=== PATIENT | male | born 1960 | race Caucasian/White ===

== ENCOUNTER 2020-02-29 13:18 | Emergency (ER) | payer OTHER, SELFPAY ==
--- NOTE | ~2020-02-29 | XR_ITS ---
EXAMINATION: XR tibia fibula LT 2V DATE: 02/29/2020 14:05 INDICATION: Left lower leg wound. TECHNIQUE: 2 views of left tibia and fibula on 3 radiographs were obtained. COMPARISON: None. FINDINGS: Bone alignment is normal. No fracture. 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 IMPRESSION: 1. No fracture or radiopaque foreign body. Reviewed, dictated and finalized at location B.
[2020-02-29 13:25] VITALS: BP 180/99; PULSE 84; RESP 20; TEMP 36.4; O2SAT 97
--- NOTE | 2020-02-29 13:35 | ED.WOUNDLAC ---
HPI - Wound/Laceration General Chief Complaint: Extremity Injury, Lower Stated Complaint: whole in left leg front having sharp pain Time Seen by Provider: 02/29/20 13:21 Source: patient Mode of arrival: ambulatory Limitations: no limitations History of Present Illness HPI narrative: 59-year-old man with a history of chronic left lower extremity wound comes in today complaining of a hole in his left leg that is becoming increasingly painful. Pain is mostly on the medial aspect of his left lower leg. Patient states that he has to see a neurologist later the month for evaluation for neuropathy. He denies any fever, nausea, vomiting , night sweats and denies any recent injury. 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 Onset (ago): week(s) Extremity Location: Left: lower leg Context: other ( chronic) Related Data Allergies Allergy/AdvReac Type Severity Reaction Status Date / Time No Known Allergies Allergy Verified 04/17/19 09:49 Review of Systems Constitutional: Constitutional: Denies chills, Denies fever(s) and Denies weakness Respiratory: Respiratory: Denies cough and Denies dyspnea Gastrointestinal: Gastrointestinal: Denies abdominal pain, Denies nausea and Denies vomiting Neurologic: Denies vertigo, Denies dizziness and Denies syncope Hematologic/Lymphatic: Hematologic/Lymphatic: Denies easy bleeding and Denies easy bruising Allergic/Immunologic: Allergic/Immunologic: Denies lip swelling and Denies tongue swelling PMFSH Past Medical History Medical History Chronic wound of extremity Social History Social History Smoking status: Current every day smoker Substance use: never Living arrangements: with family Exam Const: General: healthy appearing and alert Orientation/consciousness: patient oriented x3 Limitations: no limitations Other: mild acute distress. Eyes: Conjunctivae: conjunctivae normal Pupils: Equal, round and reactive pupils present EOM: EOMs intact bilaterally Resp: Effort & Inspection: normal respiratory effort and not labored Auscultation: clear to auscultation bilaterally, no rales, no rhonchi and no wheezes Cardio: Rate: regular rate Rhythm: regular rhythm Heart sounds: no murmurs Skin: General skin exam: normal color, no jaundice and no pallor Rashes: no rashes Other: And her left lower leg shows some edema and nonpitting edema. There is a 2 cm diameter wound with fibrinous and purulent material at the base. There is a halo of brownish red and edematous tenderness approximately 15 cm in diameter. Neuro: General: No patient oriented x3, No moves all extremities and No no focal motor deficits Cranial nerves: No Nystagmus not present Speech: No normal speech Gait exam (Neuro): gait abnormal Extrem: General: normal to inspection and no clubbing, cyanosis or edema Psych: Appearance: grossly normal and well kempt Mental Status: mental status grossly normal Affect: normal affect Attitude: cooperative Thought content: Yes Normal thought content present Course Vital Signs Vital signs: Vital Signs Temperature 36.4 C 02/29/20 13:25 Pulse Rate 84 02/29/20 13:25 Respiratory Rate 20 02/29/20 13:25 Blood Pressure 180/99 H 02/29/20 13:25 Pulse Oximetry 97 02/29/20 13:25 Temperature 36.4 C 02/29/20 13:25 Pulse Rate 73 02/29/20 14:00 Respiratory Rate 18 02/29/20 14:00 Blood Pressure 168/96 H 02/29/20 14:00 Pulse Oximetry 97 02/29/20 14:00 MDM - Wound/Laceration Lab Data Result diagrams: 02/29/20 13:49 02/29/20 13:49 Labs: Lab Results 02/29/20 02/29/20 Range/Units 13:49 13:49 WBC 8.6 (4.8-10.8) K/mm3 RBC 4.52 L (4.70-6.10) M/mm3 Hgb 13.4 L (14.0-18.0) g/dL Hct 40.0 (40.0-54.0) % MCV 88.5 (78.0-102.0) fL MCH 29.6 (27.0-31.0) pg MCHC 33.5 (32.0-3
[2020-02-29 13:45] VITALS: BP 158/90; PULSE 78; RESP 18; O2SAT 100
[2020-02-29 13:57] LABS: Basophils Absolute Auto 0.03 K/mm3 (0.00-0.10); Basophils Percent Auto 0.4 % (0.0-1.0); Eosinophils Absolute Auto 0.24 K/mm3 (0.02-0.50); Eosinophils Percent Auto 2.8 % (1.0-6.0); Hemoglobin 13.4 g/dL (14.0-18.0); Immature Granulocyte Absolute 0.02 K/mm3 (0.00-0.00); Immature Granulocyte Percent A 0.2 % (0.0-0.0); Lymphocytes Absolute Auto 1.44 K/mm3 (1.10-4.50); Lymphocytes Percent Auto 16.8 % (18.0-42.0); Mean Corpuscular HGB Conc 33.5 g/dL (32.0-36.0); Mean Corpuscular Hemoglobin 29.6 pg (27.0-31.0); Mean Corpuscular Volume 88.5 fL (78.0-102.0); Mean Platelet Volume 9.4 fl (8.7-11.0); Monocytes Absolute Auto 0.56 K/mm3 (0.10-0.90); Monocytes Percent Auto 6.5 % (2.0-11.0); Neutrophils Absolute Auto 6.3 K/mm3 (1.7-7.2); Neutrophils Percent Auto 73.3 % (50.0-70.0); Platelet Count Result 284 K/mm3 (150-420); Red Blood Count 4.52 M/mm3 (4.70-6.10); Red Cell Distribution Width 13.7 % (11.6-14.4); White Blood Count 8.6 K/mm3 (4.8-10.8)
[2020-02-29 14:00] VITALS: BP 168/96; PULSE 73; RESP 18; O2SAT 97
[2020-02-29 14:10] LABS: Alanine Aminotransferase 27 U/L (16-63); Albumin Level 3.3 g/dL (3.4-5.0); Alkaline Phosphatase 97 U/L (46-116); Anion Gap 9 mmol/L (8-16); Aspartate Amino Transferase 17 U/L (15-37); Bilirubin,Total 0.8 mg/dL (0.00-1.00); Blood Urea Nitrogen 12 mg/dL (7-18); CRP 2.6 mg/dL (0.0-0.9); Carbon Dioxide 25 mmol/L (21-32); Chloride 106 mmol/L (98-108); Estimated CRCL calculation 73 ml/min; Estimated Glomerular Filt Rate > 60; Glucose 85 mg/dL (70-99); Osmolality Calculated 288 mOsm/kg (285-295); Potassium 3.8 mmol/L (3.5-5.1); Sodium 140 mmol/L (136-145); Total Protein 7.2 g/dL (6.4-8.2)
[2020-02-29 14:27] VITALS: PULSE 73; RESP 16; O2SAT 99
--- NOTE | 2020-02-29 14:36 | PC.NURSE ---
wet to dry dressing placed on left lower leg per erp orders
[2020-02-29 14:58] LABS: Erythrocyte Sedimentation Rate 40 mm/hr (0-20)
== END 2020-02-29 14:36 | disposition home or self-care (01) ==
PROVIDERS: Emergency Provider Emergency Medicine; PCP Family Medicine
DX: S81.802A Unspecified open wound, left lower leg, initial encounter (principal)
CPT/HCPCS: 36415; 73590; 80053; 85025; 85652; 86140; 99283

== ENCOUNTER 2021-03-25 18:58 | Emergency (ER) | payer OTHER, SELFPAY ==
[2021-03-25 20:02] VITALS: BP 177/82; PULSE 82; RESP 20; TEMP 36.7; O2SAT 97
--- NOTE | 2021-03-25 20:05 | ED.ABDPAIN ---
HPI - Abdominal Pain General Chief Complaint: Unspecified Stated Complaint: Lump between groin and stomach Time Seen by Provider: 03/25/21 20:05 Source: patient Mode of arrival: ambulatory Limitations: no limitations History of Present Illness HPI narrative: 60-year-old woman comes in today complaining of pain in his right lower quadrant in his right groin which has been present for the last 4 months. Patient states the pain is getting worse recently. He states that sometimes part of his groin sticks out, particular after he is working. He has had no vomiting, diarrhea, fever, shortness of breath, or change in his appetite. States that he had testing done at hospital in [place] several weeks ago but they never called him about the results. He states that sometimes having a bowel movement and urinating makes the pain better. MD elicited complaint: abdominal pain Onset (ago): month(s) (4) Pain Consistency: constant and colicky Location: RLQ Severity: severe Quality: sharp Radiation: other (groin) Migration to: no migration Exacerbating factors: other ( Palpation, working) Relieving factors: rest Context: denies recent surgery/procedure Related Data Home Medications Medication Instructions Recorded Confirmed No Home Medications 03/25/21 03/25/21 Allergies Allergy/AdvReac Type Severity Reaction Status Date / Time Penicillins Allergy Hives Verified 03/25/21 20:23 Review of Systems Review of Systems: All systems reviewed & are unremarkable except as noted in HPI and below Constitutional: Constitutional: Denies chills and Denies fever(s) ENT: Denies nasal congestion and Denies sore throat Cardiovascular: Cardiovascular: Denies chest pain and Denies radiating jaw, neck or arm pain Respiratory: Respiratory: Denies cough, Denies dyspnea and Denies wheezing Gastrointestinal: Gastrointestinal: Reports abdominal pain, Denies diarrhea, Denies nausea and Denies vomiting Genitourinary: Genitourinary: Denies hematuria, Denies dysuria and Denies urinary frequency Musculoskeletal: Musculoskeletal: Denies back pain, Denies arthralgias and Denies joint swelling Integumentary/Breasts: Skin/Breast: Denies pruritus, Denies erythema and Denies rash Hematologic/Lymphatic: Hematologic/Lymphatic: Denies easy bleeding and Denies easy bruising Allergic/Immunologic: Allergic/Immunologic: Denies lip swelling and Denies throat swelling [facility] Past Medical History Medical History Chronic wound of extremity Social History Social History Smoking status: Current every day smoker Substance use: never Exam Const: General: healthy appearing and alert Orientation/consciousness: patient oriented x3 Limitations: no limitations Other: Mild acute distress. Eyes: Conjunctivae: conjunctivae normal Pupils: Equal, round and reactive pupils present EOM: EOMs intact bilaterally Resp: Effort & Inspection: normal respiratory effort and not labored Auscultation: clear to auscultation bilaterally, no rales, no rhonchi and no wheezes Cardio: Rate: regular rate Rhythm: regular rhythm Heart sounds: no murmurs GI: GI Palp: Yes Soft to palpation, Yes Tenderness to palpation present (GI) ( Right lower quadrant.) and No Palpable mass present Auscultation: normal bowel sounds Other: No inguinal masses or swelling while supine it and while standing. : Male General Exam: Yes normal external exam Skin: General skin exam: normal color, no jaundice and no pallor Rashes: no rashes Neuro: General: patient oriented x3, moves all extremities, no focal motor deficits and CN's II-XI intact bilaterally Speech: normal speech Gait exam (Neuro): Normal gait present Extrem: General: normal to inspection and no clubbing, cyanosis or edema Psych: Appearance: grossly normal and well kempt Mental Status: mental status grossly no
[2021-03-25 21:36] LABS: Basophils Absolute Auto 0.03 K/mm3 (0.00-0.10); Basophils Percent Auto 0.4 % (0.0-1.0); Eosinophils Absolute Auto 0.43 K/mm3 (0.02-0.50); Eosinophils Percent Auto 5.4 % (1.0-6.0); Hematocrit 40.6 % (40.0-54.0); Hemoglobin 13.5 g/dL (14.0-18.0); Immature Granulocyte Absolute 0.02 K/mm3 (0.00-0.00); Immature Granulocyte Percent A 0.2 % (0.0-0.0); Lymphocytes Percent Auto 24.9 % (18.0-42.0); Mean Corpuscular HGB Conc 33.3 g/dL (32.0-36.0); Mean Corpuscular Hemoglobin 29.4 pg (27.0-31.0); Mean Corpuscular Volume 88.5 fL (78.0-102.0); Mean Platelet Volume 9.7 fl (8.7-11.0); Monocytes Absolute Auto 0.69 K/mm3 (0.10-0.90); Monocytes Percent Auto 8.6 % (2.0-11.0); Neutrophils Absolute Auto 4.9 K/mm3 (1.7-7.2); Neutrophils Percent Auto 60.5 % (50.0-70.0); Platelet Count Result 191 K/mm3 (150-420); Red Blood Count 4.59 M/mm3 (4.70-6.10); Red Cell Distribution Width 14.1 % (11.6-14.4)
[2021-03-25 21:52] LABS: Alanine Aminotransferase 23 U/L (16-63); Albumin Level 3.3 g/dL (3.4-5.0); Alkaline Phosphatase 96 U/L (46-116); Anion Gap 10 mmol/L (8-16); Aspartate Amino Transferase < 10 U/L (15-37); Bilirubin,Total 0.7 mg/dL (0.00-1.00); Blood Urea Nitrogen 22 mg/dL (7-18); Calcium 8.5 mg/dL (8.5-10.1); Carbon Dioxide 27 mmol/L (21-32); Chloride 105 mmol/L (98-108); Estimated CRCL calculation 61 ml/min; Estimated Glomerular Filt Rate 45; Glucose 113 mg/dL (70-99); Lipase 171 U/L (73-393); Osmolality Calculated 298 mOsm/kg (285-295); Potassium 4.4 mmol/L (3.5-5.1); Sodium 142 mmol/L (136-145); Total Protein 6.6 g/dL (6.4-8.2)
[2021-03-25 21:57] LABS: Lactic Acid Reflex 1.2 mmol/L (0.4-2.0)
[2021-03-25 22:18] VITALS: BP 173/96; PULSE 82; RESP 20; O2SAT 99
[2021-03-25 22:33] LABS: Add Urine Microscopic? NO; Appearance Urine Clear (Clear); Bilirubin Urine Negative (Negative); Blood Urine Negative (Negative); Color Urine Yellow (Yellow); Glucose Urine UA Negative (Negative); Ketones Urine Negative (Negative); Leukocyte Esterase Ur Negative (Negative); Nitrate Urine Negative (Negative); Protein Urine Negative (Negative); pH Urine 6.5 (5.0-8.0)
[2021-03-25 23:05] VITALS: BP 160/73; PULSE 75; RESP 20; TEMP 36.9; O2SAT 98
== END 2021-03-25 23:10 | disposition home or self-care (01) ==
PROVIDERS: Emergency Provider Emergency Medicine
DX: R10.31 Right lower quadrant pain (principal)
CPT/HCPCS: 36415; 80053; 81003; 83605; 83690; 85025; 99282; 99283

== ENCOUNTER 2021-10-08 01:14 | Emergency (ER) | payer OTHER, SELFPAY ==
--- NOTE | ~2021-10-08 | XR_ITS ---
EXAMINATION: XR chest 1V portable INDICATION: Right chest wall wound, concern for foreign body TECHNIQUE: Portable AP chest at 0155 hours COMPARISON: None available FINDINGS: The lungs are free of acute opacities. There is no pleural effusion or pneumothorax. The ca rdiomediastinal silhouette is normal. No radiopaque foreign body is visualized in the chest soft tiss ues however, the soft tissues are not completely included on the examination. IMPRESSION: 1. No acute cardiopulmonary abnormality. 2. No radiopaque foreign body identified however the soft tissues are incompletely imaged. Recommend repeat examination to include all of the soft tissues if there is high clinical suspicion for foreign body. Reviewed, dictated and finalized at location A. IMPRESSION: 1. No acute cardiopulmonary abnormality. 2. No radiopaque foreign body identified however the soft tissues are incomplet raven imaged. Recommend repeat examination to include all of the soft tissues if there is high clinical suspicion for foreign body.
[2021-10-08 01:17] VITALS: BP 179/96; PULSE 84; RESP 16; TEMP 36.7; O2SAT 100
--- NOTE | 2021-10-08 01:22 | ED.SKABFB ---
HPI - Skin/Abscess/Foreign Bdy General Chief complaint: Skin/Abscess/Foreign Body Stated complaint: Something in Right Chest Time Seen by Provider: 10/08/21 01:22 Source: patient History of Present Illness HPI narrative: 60-year-old male with a history of arthralgia, back pain, foot ulcer in 2019 presents to the ER with a 3 day history of. -- right chest cellulitis -- questionable tick bite. had a black spot adherent to the wound Which he pulled out. no fever or chills no wound drainage MD complaint: insect bite/sting and other ( cellulitis) Onset (ago): day(s) ( started 3 days ago) Tetanus up to date: no Location: chest Severity: mild Quality: aching Pain Consistency: constant Relieving factors: none Exacerbating factors: none Associated symptoms: denies other symptoms Treatments prior to arrival: none Related Data Home Medications Medication Instructions Recorded Confirmed No Home Medications 03/25/21 10/08/21 Allergies Allergy/AdvReac Type Severity Reaction Status Date / Time Penicillins Allergy Hives Verified 10/08/21 01:21 Review of Systems Review of Systems: All systems reviewed & are unremarkable except as noted in HPI and below Constitutional: Constitutional: Reports as per HPI and Reports no additional constitutional complaints Eyes: Eyes: Reports as per HPI and Reports no additional eye complaints ENT: Reports system reviewed and no additional complaints, except as documented and Reports as per HPI Cardiovascular: Cardiovascular: Reports as per HPI and Reports no additional cardiovascular complaints Respiratory: Respiratory: Reports as per HPI and Reports no additional respiratory complaints Gastrointestinal: Gastrointestinal: Reports as per HPI and Reports no additional gastrointestinal complaints Genitourinary: Genitourinary: Reports no additional male genitourinary complaints and Reports as per HPI Musculoskeletal: Musculoskeletal: Reports no additional musculoskeletal complaints, Reports as per HPI and Reports back pain Integumentary/Breasts: Comments: cellulitis over right anterior chest with the 3 mm hole in the middle Neurologic: Reports system reviewed and no additional complaints, except as documented and Reports as per HPI Psychiatric: Psychiatric: Reports no additional psychiatric complaints and Reports as per HPI Endocrine: Endocrine: Reports no additional endocrine complaints and Reports as per HPI Hematologic/Lymphatic: Hematologic/Lymphatic: Reports no additional hematologic/lymphatic complaints and Reports as per HPI Allergic/Immunologic: Allergic/Immunologic: Reports no additional allergic/immunologic complaints and Reports as per HPI PMFSH Past Medical History Medical History Chronic wound of extremity Social History Social History Smoking status: Current every day smoker Substance use: never Exam Const: General: no acute distress Orientation/consciousness: patient oriented x3 HENMT: Head: normal to inspection Mouth: Yes moist mucous membranes Eyes: Conjunctivae: conjunctivae normal Pupils: Equal, round and reactive pupils present EOM: EOMs intact bilaterally Neck: Neck: normal visual inspection and no lymphadenopathy Chest: Chest palpation & inspection: normal inspection of the chest Resp: Effort & Inspection: normal respiratory effort Auscultation: diminished lung sounds Cardio: Rate: regular rate Rhythm: regular rhythm GI: Auscultation: normal bowel sounds Other: right inguinal hernia which is nontender and reducible : Testes: Testes normal Back/Spine/Pelvis: Back: no CVA tenderness Skin: Other: cellulitis over the right anterior chest measuring 10 cm. firm on palpation nontender. Warm. Neuro: General: patient oriented x3 and moves all extremities Extrem: General: normal to inspection and no pedal edema Psych: M
[2021-10-08] MEDS: TETANUS,DIPHTHERIA,AC PERTUSSIS ADULT 0.5 ML (ADACEL) IM (01:50)
[2021-10-08] MEDS: CLINDAMYCIN HCL 150 MG CAP 300 MG PO (01:51)
[2021-10-08 01:58] VITALS: O2SAT 100
[2021-10-08 02:00] LABS: Hematocrit 41.8 % (40.0-54.0); Hemoglobin 13.7 g/dL (14.0-18.0); Mean Corpuscular HGB Conc 32.8 g/dL (32.0-36.0); Mean Corpuscular Hemoglobin 29.1 pg (27.0-31.0); Mean Corpuscular Volume 88.7 fL (78.0-102.0); Mean Platelet Volume 9.5 fl (8.7-11.0); Platelet Count Result 220 K/mm3 (150-420); Red Blood Count 4.71 M/mm3 (4.70-6.10); Red Cell Distribution Width 13.6 % (11.6-14.4); White Blood Count 8.9 K/mm3 (4.8-10.8)
[2021-10-08 02:20] LABS: Lactic Acid Reflex 1.2 mmol/L (0.4-2.0)
[2021-10-08 02:21] VITALS: O2SAT 99
[2021-10-08 02:26] LABS: Alanine Aminotransferase 26 U/L (16-63); Albumin Level 3.5 g/dL (3.4-5.0); Alkaline Phosphatase 126 U/L (46-116); Anion Gap 5 mmol/L (8-16); Aspartate Amino Transferase 19 U/L (15-37); Bilirubin,Total 0.8 mg/dL (0.00-1.00); Blood Urea Nitrogen 14 mg/dL (7-18); Calcium 9.2 mg/dL (8.5-10.1); Carbon Dioxide 30 mmol/L (21-32); Chloride 103 mmol/L (98-108); Estimated Glomerular Filt Rate 54; Glucose 95 mg/dL (70-99); Osmolality Calculated 286 mOsm/kg (285-295); Potassium 3.8 mmol/L (3.5-5.1); Sodium 138 mmol/L (136-145); Total Protein 7.3 g/dL (6.4-8.2)
[2021-10-08 02:27] LABS: Band Neutrophils Percent 0 % (0-6); Basophils Absolute Manual 0.17 K/mm3 (0-0.1); Basophils Percent Manual 2 % (0-1); Eosinophils Absolute Manual 1.15 K/mm3 (0.02-0.5); Eosinophils Percent Manual 13 % (1-6); Lymphocytes Percent Manual 18 % (18-44); Monocytes Absolute Manual 0.44 K/mm3 (0.1-0.90); Monocytes Percent Manual 5 % (3-9); Neutrophils Absolute Manual 5.51 K/mm3 (1.3-6.7); Neutrophils Percent Manual 62 % (46-73); Platelet Estimate Adequate (Adequate); Total Cells Counted 100
[2021-10-08 03:09] VITALS: BP 155/89; PULSE 78; RESP 18; O2SAT 99
== END 2021-10-08 03:10 | disposition home or self-care (01) ==
PROVIDERS: Emergency Provider Internal Medicine Critical Care Medicine
DX: L03.313 Cellulitis of chest wall (principal); N18.31 Chronic kidney disease, stage 3a
CPT/HCPCS: 36415; 71045; 80053; 83605; 85025; 87040; 90471; 90715; 99283; A9270

== ENCOUNTER 2022-03-08 16:35 | Emergency (ER) | payer OTHER, SELFPAY ==
[2022-03-08] VITALS (25 sets, daily range): BP systolic 131–214; BP diastolic 65–107; PULSE 55–66; RESP 20; TEMP 36.2; O2SAT 96–100
--- NOTE | ~2022-03-08 | CT_ITS ---
EXAMINATION: CT pelvis wo con DATE: 03/08/2022 19:46 INDICATION: Right buttock pain, no history of trauma. TECHNIQUE: Computed tomography (CT) of the pelvis was performed without intravenous contrast. Automat ed exposure control and iterative reconstruction technique were employed. The dose-length product was 1089.30 mGy-cm. COMPARISON: None FINDINGS: Atherosclerotic calcifications. Partially distended bladder with wall thickening, likely se condary to prostatomegaly. Eccentric thickening of the right posterior lateral wall of the rectum. La rge fat and small bowel containing right inguinal hernia. Severe degenerative disc disease at L5-S1. Bilateral partial sacralization, with pseudoarthrosis formation. Moderate degenerative changes in th e bilateral hips and mild degenerative change in the pubic symphysis. IMPRESSION: Large right inguinal hernia containing fat and loops of small bowel, without evidence of obstruction. Eccentric rectal wall thickening concerning for rectal mass, recommend nonemergent but timely gastro enterology referral. Reviewed, dictated and finalized at location K. IMPRESSION: Large right inguinal hernia containing fat and loops of small bowel, without ev idence of obstruction. Eccentric rectal wall thickening concerning for rectal m ass, recommend nonemergent but timely gastroenterology referral.
[2022-03-08 19:03] LABS: Add Urine Microscopic? NO; Appearance Urine Clear (Clear); Bilirubin Urine Negative (Negative); Blood Urine Negative (Negative); Color Urine Light Yellow (Yellow); Glucose Urine UA Negative (Negative); Ketones Urine Negative (Negative); Leukocyte Esterase Ur Negative (Negative); Nitrate Urine Negative (Negative); Protein Urine Negative (Negative); Specific Grav Ur <= 1.005 (1.010-1.020); Urobilinogen Urine 0.2 mg/dL (0.2-1.0); pH Urine 6.5 (5.0-8.0)
[2022-03-08 19:20] LABS: Hemoglobin 14.1 g/dL (14.0-18.0); Mean Corpuscular HGB Conc 32.8 g/dL (32.0-36.0); Mean Corpuscular Hemoglobin 29.1 pg (27.0-31.0); Mean Corpuscular Volume 88.8 fL (78.0-102.0); Mean Platelet Volume 9.4 fl (8.7-11.0); Platelet Count Result 232 K/mm3 (150-420); Red Blood Count 4.84 M/mm3 (4.70-6.10); Red Cell Distribution Width 13.4 % (11.6-14.4); White Blood Count 8.1 K/mm3 (4.8-10.8)
[2022-03-08 19:34] LABS: Alanine Aminotransferase 20 U/L (16-63); Albumin Level 3.5 g/dL (3.4-5.0); Alkaline Phosphatase 112 U/L (46-116); Anion Gap 8 mmol/L (8-16); Aspartate Amino Transferase 15 U/L (15-37); Bilirubin,Total 1.1 mg/dL (0.00-1.00); Blood Urea Nitrogen 14 mg/dL (7-18); Calcium 9.4 mg/dL (8.5-10.1); Carbon Dioxide 28 mmol/L (21-32); Chloride 102 mmol/L (98-108); Estimated CRCL calculation 82 ml/min; Estimated Glomerular Filt Rate > 60; Glucose 97 mg/dL (70-99); Osmolality Calculated 286 mOsm/kg (285-295); Potassium 4.3 mmol/L (3.5-5.1); Sodium 138 mmol/L (136-145); Total Protein 7.7 g/dL (6.4-8.2)
[2022-03-08] MEDS: cloNIDine HCL 0.2 MG TABLET PO ×2 (20:00→20:50)
[2022-03-08] MEDS: KETOROLAC (*BKC) 60 MG/2 ML VIAL IM (20:00)
--- NOTE | 2022-03-08 20:32 | PC.NURSE ---
pt continues to remove pulse ox in sleep
--- NOTE | 2022-03-08 22:35 | ED.BACK ---
HPI - Back Pain/Injury General Chief Complaint: Urogenital-Male Stated Complaint: burning sensation on right side of back Time Seen by Provider: 03/08/22 16:38 Source: patient and RN notes reviewed Mode of arrival: wheelchair Limitations: no limitations History of Present Illness MD elicited complaint: back pain Pertinent past history: prior back pain Onset (ago): day(s) (2) Timing: constant Severity: mild Pain scale (0-10): 6 Similar Symptoms Previously: Yes Quality: burning, dull and aching Location: right lower back (to right buttock) Radiation: buttocks Exacerbating factors: none Relieving factors: none Related Data Allergies Allergy/AdvReac Type Severity Reaction Status Date / Time Penicillins Allergy Hives Verified 03/08/22 17:44 Review of Systems Review of Systems: All systems reviewed & are unremarkable except as noted in HPI and below Constitutional: Constitutional: Reports no additional constitutional complaints Eyes: Eyes: Reports no additional eye complaints ENT: Reports system reviewed and no additional complaints, except as documented Cardiovascular: Cardiovascular: Reports no additional cardiovascular complaints Respiratory: Respiratory: Reports no additional respiratory complaints Gastrointestinal: Gastrointestinal: Reports no additional gastrointestinal complaints Musculoskeletal: Musculoskeletal: Reports no additional musculoskeletal complaints Integumentary/Breasts: Skin/Breast: Reports system reviewed and no additional complaints, except as docu Neurologic: Reports system reviewed and no additional complaints, except as documented Psychiatric: Psychiatric: Reports no additional psychiatric complaints Endocrine: Endocrine: Reports no additional endocrine complaints Hematologic/Lymphatic: Hematologic/Lymphatic: Reports no additional hematologic/lymphatic complaints Allergic/Immunologic: Allergic/Immunologic: Reports no additional allergic/immunologic complaints PMFSH Past Medical History Medical History Chronic wound of extremity Right-sided low back pain with sciatica Social History Social History Smoking status: Current every day smoker Substance use: never Exam Const: General: healthy appearing, no acute distress and well nourished Nutritional Appearance: well nourished Orientation/consciousness: patient oriented x3 Limitations: no limitations HENMT: Head: normal to inspection Ears: external ears normal, TM's normal bilaterally and EAC's normal Face/Nose/Sinus: Normal external nose present, Normal nares present, normal facial exam and sinuses nontender Face and sinus: normal facial exam and sinuses nontender Mouth: Yes Normal oral and palatal mucosa present and Yes moist mucous membranes Teeth and gingiva: dentition normal Throat: posterior oropharynx normal Eyes: Conjunctivae: conjunctivae normal Pupils: Equal, round and reactive pupils present EOM: EOMs intact bilaterally Neck: Neck: normal visual inspection, no lymphadenopathy and no meningeal signs Chest: Chest palpation & inspection: normal inspection of the chest Resp: Effort & Inspection: normal respiratory effort Auscultation: clear to auscultation bilaterally Cardio: Rate: regular rate Rhythm: regular rhythm GI: GI Palp: Yes Soft to palpation and No Tenderness to palpation present (GI) Auscultation: normal bowel sounds Other: minimally tender upper and lateral right buttock on deep palpation : General: Yes bladder normal to palpation and Yes no CVA tenderness Back/Spine/Pelvis: Back: no CVA tenderness Skin: General skin exam: normal color Rashes: no rashes Wounds: no wounds Neuro: General: patient oriented x3, moves all extremities, no meningeal signs, no focal motor deficits and CN's II-XI intact bilaterally Cranial nerves: Yes Equal, round and reactive pupils present and Yes Nyst
== END 2022-03-08 23:10 | disposition home or self-care (01) ==
PROVIDERS: Emergency Provider Emergency Medicine
DX: M54.31 Sciatica, right side (principal); I10 Essential (primary) hypertension; R22.2 Localized swelling, mass and lump, trunk
CPT/HCPCS: 36415; 72192; 80053; 81003; 85027; 96372; 99284; A9270; J1885

== ENCOUNTER 2022-03-23 21:00 | Emergency (ER) | payer OTHER, SELFPAY ==
[2022-03-23] VITALS (7 sets, daily range): BP systolic 191–212; BP diastolic 90–104; PULSE 69–77; RESP 18–24; TEMP 36.3; O2SAT 96–100
--- NOTE | ~2022-03-23 | CT_ITS ---
EXAMINATION: CT abdomen pelvis w con DATE: 03/23/2022 22:30 INDICATION: RLQ PAIN IN INCARCERATED RIH PAIN 1HR AGO TECHNIQUE: Computed tomography (CT) of the abdomen and pelvis was performed with 100 mL Omnipaque-350 intravenous contrast. Automated exposure control and iterative reconstruction technique were employe d. The dose-length product was 1245.08 mGy-cm. COMPARISON: CT pelvis 03/08/2022. FINDINGS: Lower thorax: Unremarkable Liver: Granulomatous calcification. Biliary/Gallbladder: Gallbladder is collapsed. No bile duct dilation. Pancreas: No mass or duct dilation. Spleen: Granulomatous calcification. Adrenals:No mass. Kidneys: Bilateral scarring. No obstructing calcification. No suspicious mass. No hydronephrosis. GI tract: Mildly dilated loops of small bowel in the right lower abdomen. Relative bowel wall hyperem ia of bowel loops as they lead into a right inguinal hernia. Normal appendix. Persistent eccentric wa ll thickening in the right posterior lateral rectum. Mesentery/Peritoneum: No ascites, mass, or free air. Retroperitoneum: No mass. Atherosclerotic abdominal aortic and/or arterial calcifications. Pelvis: Prostatomegaly. Soft Tissues: Right inguinal hernia containing loops of dilated and hyperemic small bowel and fluid. Left inguinal lymphadenopathy. Bones: No acute osseous finding. IMPRESSION: Small bowel containing right inguinal hernia with findings concerning for strangulation and early/par tial small bowel obstruction. Persistent eccentric rectal wall thickening, recommend nonemergent but timely gastroenterology or surgical consultation. Left inguinal lymphadenopathy. Reviewed, dictated and finalized at [facility]. IMPRESSION: Small bowel containing right inguinal hernia with findings concerning for stran gulation and early/partial small bowel obstruction. Persistent eccentric rectal wall thickening, recommend nonemergent but timely gastroenterology or surgical consultation. Left inguinal lymphadenopathy.
--- NOTE | 2022-03-23 21:33 | ED.ABDPAIN ---
HPI - Abdominal Pain General Chief Complaint: Abdominal Pain Stated Complaint: abdominal pains Time Seen by Provider: 03/23/22 21:08 Source: patient Mode of arrival: ambulatory Limitations: no limitations History of Present Illness HPI narrative: PATIENT IS 61-YEAR-OLD WHITE MALE COMPLAINS OF SUDDEN RIGHT LOWER QUADRANT TENDERNESS ASSOCIATED WITH RIGHT INGUINAL HERNIA STAR AN HOUR PRIOR TO PRESENTING TO THE EMERGENCY DEPARTMENT WITHOUT ANY NAUSEA OR VOMITING. HE WAS SEEN IN THE EMERGENCY DEPARTMENT ON February OF THIS YEAR WITH LOW BACK PAIN HE HAD A CT OF HIS PELVIS WITHOUT CONTRAST WHICH SHOWED PARTIAL DISTENDED BLADDER WITH WALL THICKENING LIKELY SECONDARY TO PROSTATOMEGALY. ECCENTRIC THICKENING OF THE RIGHT POSTERIOR WALL LATERALLY OF THE RECTUM. A LARGE FAT AND SMALL BOWEL CONTAINING RIGHT INGUINAL HERNIA. THERE IS NO EVIDENCE OF OBSTRUCTION THE RECTAL THICKENING WAS CONCERNING FOR RECTAL MASS AND HE WAS RECOMMENDED TO FOLLOW-UP WITH THE COMBINE DRIVER WHICH PATIENT FAILED TO DO THAT. PATIENT DESCRIBED HIS PAIN SHARP AND 10 OUT 10. SAYS IS WORSE WHEN HE LAYS FLAT. PATIENT STATES HE HAS NOT LAID FLAT FOR 2 YEARS AND HE SLEEPS IN A RECLINER. PATIENT IS A POOR HISTORIAN. PATIENT USUALLY TAKES LISINOPRIL HYDROCHLOROTHIAZIDE BUT STATES HE HAS BEEN OFF THIS FOR AT LEAST THREE WEEKS . PAINS BEEN CONSTANT SINCE ONSET. PATIENT STATES LAST BOWEL MOVEMENT WAS 2 WEEKS AGO HE HAS HAD SOME BLOOD IN HIS STOOL A WEEK OR SO OR MORE AGO WHICH SHE ATTRIBUTED TO HEMORRHOIDS. PATIENT STATES THAT HIS RIGHT INGUINAL HERNIA USUALLY DECOMPRESSED WHEN HE WAKES UP IN THE MORNING AND THEN BY NOON TIME IT IS THE SIZE OF BASEBALL. SOMETIMES HE TRIES TO MANUALLY DECOMPRESS HIS HERNIA. Related Data Home Medications Medication Instructions Recorded Confirmed lisinopril 20 1 tablet PO DIRECTED 03/23/22 03/23/22 mg-hydrochlorothiazide 25 mg tablet Allergies Allergy/AdvReac Type Severity Reaction Status Date / Time Penicillins Allergy Hives Verified 03/23/22 21:13 Review of Systems Review of Systems: All systems reviewed & are unremarkable except as noted in HPI and below Constitutional: Constitutional: Reports no additional constitutional complaints Eyes: Eyes: Reports no additional eye complaints ENT: Reports system reviewed and no additional complaints, except as documented Cardiovascular: Cardiovascular: Reports no additional cardiovascular complaints Respiratory: Respiratory: Reports no additional respiratory complaints Gastrointestinal: Gastrointestinal: Reports as per HPI, Reports no additional gastrointestinal complaints, Reports abdominal pain, Denies bloating, Denies constipation, Denies heartburn, Denies diarrhea, Denies nausea and Denies vomiting Genitourinary: Genitourinary: Reports no additional male genitourinary complaints Musculoskeletal: Musculoskeletal: Reports no additional musculoskeletal complaints Integumentary/Breasts: Skin/Breast: Reports system reviewed and no additional complaints, except as docu Neurologic: Reports system reviewed and no additional complaints, except as documented Psychiatric: Psychiatric: Reports no additional psychiatric complaints Endocrine: Endocrine: Reports no additional endocrine complaints Hematologic/Lymphatic: Hematologic/Lymphatic: Reports no additional hematologic/lymphatic complaints [facility] Past Medical History Medical History (Updated 03/23/22 @ 23:38 by Jairo Martinez MD) Chronic wound of extremity Rectal mass Right inguinal hernia Right-sided low back pain with sciatica Social History Social History Smoking status: Current every day smoker Substance use: never Exam Narrative: PATIENT IS A WHITE MALE MODERATE DISTRESS PULLING HIS RIGHT SIDE OF HIS ABDOMEN /RIGHT LOWER QUADRANT. AND COMPLAINED OF PAIN RADIATING DOWN TO HIS RIGHT SCROTUM. HEAD IS NORMOCEPHALIC ATRAUMATIC EYES CO
[2022-03-23] MEDS: SODIUM CHLORIDE 0.9% IV 1,000 ML 999 ML IV CONT (21:38)
[2022-03-23] MEDS: ONDANSETRON INJ 4 MG/2 ML VIAL IV PUSH (21:40)
[2022-03-23] MEDS: fentaNYL CITRATE INJ (*CRX) 100 MCG/2 ML VIAL 50 MCG IV PUSH (21:41)
[2022-03-23 21:43] LABS: Hemoglobin 13.8 g/dL (14.0-18.0); Mean Corpuscular HGB Conc 32.9 g/dL (32.0-36.0); Mean Corpuscular Hemoglobin 28.8 pg (27.0-31.0); Mean Corpuscular Volume 87.5 fL (78.0-102.0); Mean Platelet Volume 9.2 fl (8.7-11.0); Platelet Count Result 233 K/mm3 (150-420); Red Cell Distribution Width 13.9 % (11.6-14.4)
[2022-03-23 21:57] LABS: Partial Thromboplastin Time 32.5 SEC (23.90-30.70); Prothrombin Time 10.7 Seconds (9.50-12.10)
[2022-03-23 21:58] LABS: Alanine Aminotransferase 21 U/L (16-63); Albumin Level 3.4 g/dL (3.4-5.0); Alkaline Phosphatase 102 U/L (46-116); Anion Gap 5 mmol/L (8-16); Aspartate Amino Transferase 15 U/L (15-37); Bilirubin,Total 0.7 mg/dL (0.00-1.00); Blood Urea Nitrogen 19 mg/dL (7-18); Carbon Dioxide 29 mmol/L (21-32); Chloride 106 mmol/L (98-108); Estimated CRCL calculation 74 ml/min; Estimated Glomerular Filt Rate 57; Glucose 117 mg/dL (70-99); Osmolality Calculated 293 mOsm/kg (285-295); Potassium 4.2 mmol/L (3.5-5.1); Sodium 140 mmol/L (136-145)
[2022-03-23 21:59] LABS: Band Neutrophils Percent 0 % (0-6); Basophils Absolute Manual 0.08 K/mm3 (0-0.1); Basophils Percent Manual 1 % (0-1); Eosinophils Absolute Manual 1.04 K/mm3 (0.02-0.5); Eosinophils Percent Manual 13 % (1-6); Lymphocytes Percent Manual 25 % (18-44); Monocytes Absolute Manual 0.72 K/mm3 (0.1-0.90); Monocytes Percent Manual 9 % (3-9); Neutrophils Absolute Manual 4.16 K/mm3 (1.3-6.7); Neutrophils Percent Manual 52 % (46-73); Total Cells Counted 100
[2022-03-23 22:00] LABS: Platelet Estimate Adequate (Adequate)
[2022-03-23 22:03] LABS: Lactic Acid Reflex 0.6 mmol/L (0.4-2.0)
[2022-03-23 22:08] LABS: Lipase 132 U/L (73-393)
--- NOTE | 2022-03-23 22:32 | PC.NURSE ---
Pt states that he feels like he has not been urinating as often as normal for the past two days.
--- NOTE | 2022-03-23 22:52 | PC.NURSE ---
RN checks on pt's IV fluids. The NSS is running in slow due to the IV being positional but still flowing with no signs of infiltration. Pt states he still has sharp short stents of increased pain in his right lower abdomen but gets some relief with his right knee propped up.
[2022-03-23 23:36] LABS: Add Urine Microscopic? NO; Appearance Urine Clear (Clear); Bilirubin Urine Negative (Negative); Blood Urine Negative (Negative); Color Urine Yellow (Yellow); Glucose Urine UA Negative (Negative); Ketones Urine Negative (Negative); Leukocyte Esterase Ur Negative LEU/UL (Negative); Nitrate Urine Negative (Negative); Protein Urine Negative (Negative)
[2022-03-24 00:02] VITALS: BP 188/97; PULSE 73; RESP 16; O2SAT 97
--- NOTE | 2022-03-24 00:02 | PC.NURSE ---
Pt is informed he needs a possible transfer due to his CT report. ERP comes into room and explains pt's diagnosis and possible plans. ERP recommends being trasnferred to a larger facility with GI and surgery available and offers to initiate transfer to [facility] or [facility] in [place]. Pt states that he does not want to leave his work van at a hospital parking lot and is considering leaving AMA. RN and ERP both explain that not being evaluated by a surgeon can cause his diagnosis to become worse, increase pain, and even . Pt states that he is still strongly considering leaving AMA. Pt states that he wants to return his work van to his house where he knows it will be locked and secure. Pt does not have any family or friends in the area that can drive his vehicle for him. Pt also states he needs to follow up with [employer] to change his address and fears skilled nursing time if he does not accomplish this he will return to skilled nursing. RN tells pt that the RN would assist anyway to prove he is in the hospital and is being recommend for a transfer. Pt still refuses and states that he will update his address and then go to a larger facility with his paperwork from here. Pt is also informed that he will have to wait 4 hours after narcotic administration before he could leave which would be 0200. Pt states that he would like to think about it still and would give us an answer then. Pt also reminded that he will not be receiving any pain medications until the ambulance arrives for a possible transfer. Pt takes in all the information and is able to verbal understanding. Pt is AOx4. Pt also educated about his blood pressure and his medications after having multiple high readings. Pt states he has not had any medications for 3 weeks and has not refilled it.
--- NOTE | 2022-03-24 00:28 | PC.NURSE ---
RN went to check pt's IV. NSS is still flowing freely as long as arm is straight. RN applied another pillow give pt's right arm support. Pt still unsure if he wants to be transferred or not. RN leaves pt with call light and pt has no requests at this time.
[2022-03-24 01:02] VITALS: BP 210/104; PULSE 73; RESP 16; O2SAT 99
--- NOTE | 2022-03-24 01:07 | PC.NURSE ---
[place] [employer] called to verify if pt is in the ER. RN reports this information to pt. RN also recheck's pt's IV site to ensure no infiltration has occurred due to slow infusion. The site has no swelling noted, is warm to the touch, and is not causing any discomfort to pt. RN repositioned pt's arm and IV started to flow. Pt states that he has not made a decision on transfer or not yet. Pt has no other requests at this time.
--- NOTE | 2022-03-24 01:48 | PC.NURSE ---
RN and ERP go to ensure pt understands his diagnosis and the possible risks of signing out AMA. Pt verbalizes understanding and states that he understands his diagnosis could worsen and even . 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 Pt signs a leaving against medical advise paper, witnessed by RN, and signed by ERP.
== END 2022-03-24 02:02 | disposition left against medical advice (07) ==
PROVIDERS: Emergency Provider Emergency Medicine
DX: K56.600 Partial intestinal obstruction, unspecified as to cause (principal); K40.90 Unilateral inguinal hernia, without obstruction or gangrene, not specified as recurrent
CPT/HCPCS: 36415; 74177; 80053; 81003; 83605; 83690; 83735; 85025; 85610; 85730; 96361; 96374; 96375; 99284; J2405; J3010; J7030; Q9967

== ENCOUNTER 2023-03-12 19:24 | Emergency (ER) | payer OTHER, SELFPAY ==
[2023-03-12 19:58] VITALS: BP 148/80; PULSE 100; RESP 16; TEMP 36.4; O2SAT 100
--- NOTE | 2023-03-12 20:12 | ED.GENADULT ---
HPI - General Adult General Chief complaint: Unspecified Stated complaint: colostomy bag;out of supplies Time Seen by Provider: 03/12/23 19:55 Source: patient Mode of arrival: ambulatory Limitations: no limitations History of Present Illness HPI narrative: 62 year old male with a history of methamphetamine abuse, rectal cancer status post colostomy revision of colostomy early this month presents to the ER with -- inability to take care of the large amount of mucus drainage from his rectum. -- colostomy is functioning. He denies any abdominal pain. No nausea / vomiting. No fever. He left the hospital AMA after his revision surgery. He is scheduled to have chemotherapy and radiation. Onset (ago): day(s) Relieving factors: none Exacerbating factors: none Associated symptoms: loss of appetite and weakness Treatments prior to arrival: none Related Data Home Medications Medication Instructions Recorded Confirmed lisinopril 20 1 tablet PO DIRECTED 03/23/22 03/23/22 mg-hydrochlorothiazide 25 mg tablet Allergies Allergy/AdvReac Type Severity Reaction Status Date / Time Penicillins Allergy Hives Verified 03/12/23 19:56 Review of Systems Review of Systems: All systems reviewed & are unremarkable except as noted in HPI and below Constitutional: Constitutional: Reports as per HPI and Reports no additional constitutional complaints Eyes: Eyes: Reports as per HPI and Reports no additional eye complaints ENT: Reports system reviewed and no additional complaints, except as documented and Reports as per HPI Cardiovascular: Cardiovascular: Reports as per HPI and Reports no additional cardiovascular complaints Gastrointestinal: Gastrointestinal: Reports as per HPI and Reports no additional gastrointestinal complaints Comments: Colostomy is functioning. Mucus drainage from his rectum. Genitourinary: Genitourinary: Reports no additional male genitourinary complaints Musculoskeletal: Musculoskeletal: Reports no additional musculoskeletal complaints and Reports as per HPI Integumentary/Breasts: Skin/Breast: Reports system reviewed and no additional complaints, except as docu and Reports as per HPI Neurologic: Reports system reviewed and no additional complaints, except as documented and Reports as per HPI Psychiatric: Psychiatric: Reports no additional psychiatric complaints and Reports as per HPI Endocrine: Endocrine: Reports no additional endocrine complaints and Reports as per HPI Hematologic/Lymphatic: Hematologic/Lymphatic: Reports no additional hematologic/lymphatic complaints and Reports as per HPI Allergic/Immunologic: Allergic/Immunologic: Reports no additional allergic/immunologic complaints and Reports as per HPI [facility] Past Medical History Medical History (Updated 03/12/23 @ 22:06 by Masoud Diaz MD) Chronic wound of extremity Colostomy in place Rectal cancer Rectal mass Right inguinal hernia Right-sided low back pain with sciatica Social History Social History (Updated 03/12/23 @ 20:30 by Masoud Diaz MD) Social History: amphetamine abuse Smoking status: Current every day smoker Substance use: never Living arrangements: with family Exam Const: General: cooperative and no acute distress Nutritional Appearance: average body habitus Orientation/consciousness: oriented to person, oriented to place and oriented to time Limitations: no limitations HENMT: Head: normal to inspection Ears: hearing grossly normal bilaterally and external ears normal Face/Nose/Sinus: Normal external nose present and Normal nares present Face and sinus: normal facial exam and sinuses nontender Mouth: Yes Normal oral and palatal mucosa present Throat: posterior oropharynx normal Eyes: General: appearance normal, both eyes and all related structures Visual Landaverde: normal visual landaverde by confrontation Neck: Neck: normal visual inspection, full ROM, no lymphadenopathy and no meningea
[2023-03-12 21:09] LABS: Basophils Absolute Auto 0.03 K/mm3 (0.00-0.10); Basophils Percent Auto 0.5 % (0.0-1.0); Eosinophils Absolute Auto 0.18 K/mm3 (0.02-0.50); Eosinophils Percent Auto 3.3 % (1.0-6.0); Hematocrit 25.7 % (40.0-54.0); Hemoglobin 8.4 g/dL (14.0-18.0); Immature Granulocyte Absolute 0.02 K/mm3 (0.00-0.00); Immature Granulocyte Percent A 0.4 % (0.0-0.0); Lymphocytes Percent Auto 12.8 % (18.0-42.0); Mean Corpuscular HGB Conc 32.7 g/dL (32.0-36.0); Mean Corpuscular Hemoglobin 29.1 pg (27.0-31.0); Mean Corpuscular Volume 88.9 fL (78.0-102.0); Mean Platelet Volume 8.7 fl (8.7-11.0); Monocytes Absolute Auto 0.49 K/mm3 (0.10-0.90); Monocytes Percent Auto 8.9 % (2.0-11.0); Neutrophils Absolute Auto 4.1 K/mm3 (1.7-7.2); Neutrophils Percent Auto 74.1 % (50.0-70.0); Platelet Count Result 224 K/mm3 (150-420); Red Blood Count 2.89 M/mm3 (4.70-6.10); Red Cell Distribution Width 15.8 % (11.6-14.4); White Blood Count 5.5 K/mm3 (4.8-10.8)
[2023-03-12 21:10] LABS: Bilirubin Urine 1+ (Negative); Blood Urine Negative (Negative); Glucose Urine UA Negative (Negative); Ketones Urine Trace (Negative); Leukocyte Esterase Ur Negative LEU/UL (Negative); Nitrate Urine Negative (Negative); Protein Urine 1+ (Negative); Specific Grav Ur >= 1.030 (1.010-1.020); Urobilinogen Urine 0.2 mg/dL (0.2-1.0)
[2023-03-12 21:20] LABS: Add Urine Microscopic? YES; Appearance Urine Slightly Cloudy (Clear); Color Urine Dark Yellow (Yellow); Squamous Epithelial Cell Urine Few /hpf (Few)
[2023-03-12 21:21] LABS: Amorphous Sediment Urine Heavy; Bacteria Urine 4+ /hpf; Hyaline Casts Urine 20-29 /lpf
[2023-03-12 21:22] LABS: Partial Thromboplastin Time 31.5 SEC (23.90-30.70); Prothrombin Time 11.2 Seconds (9.50-12.10)
[2023-03-12 21:24] LABS: Alanine Aminotransferase 14 U/L (16-63); Albumin Level 2.1 g/dL (3.4-5.0); Alkaline Phosphatase 80 U/L (46-116); Anion Gap 9 mmol/L (8-16); Aspartate Amino Transferase 13 U/L (15-37); Bilirubin,Total 0.6 mg/dL (0.00-1.00); Blood Urea Nitrogen 19 mg/dL (7-18); Calcium 9.4 mg/dL (8.5-10.1); Carbon Dioxide 26 mmol/L (21-32); Chloride 104 mmol/L (98-108); Estimated CRCL calculation 50 ml/min; Estimated Glomerular Filt Rate 51; Glucose 101 mg/dL (70-99); Osmolality Calculated 290 mOsm/kg (285-295); Potassium 3.6 mmol/L (3.5-5.1); Sodium 139 mmol/L (136-145); Total Protein 5.9 g/dL (6.4-8.2)
[2023-03-12 21:26] LABS: Lactic Acid Reflex 0.6 mmol/L (0.4-2.0); Lipase 25 U/L (16-77); Troponin I 29.7 ng/L (0.00-60.4)
[2023-03-12] MEDS: LACTATED RINGERS 1,000 ML 999 ML IV CONT (22:06)
[2023-03-12 23:16] VITALS: BP 140/89; PULSE 95; RESP 16; TEMP 36.6; O2SAT 98
== END 2023-03-12 23:18 | disposition home or self-care (01) ==
PROVIDERS: Emergency Provider Internal Medicine Critical Care Medicine
DX: F15.10 Other stimulant abuse, uncomplicated (principal); C20 Malignant neoplasm of rectum; N28.9 Disorder of kidney and ureter, unspecified; D64.9 Anemia, unspecified
CPT/HCPCS: 36415; 80053; 81001; 83605; 83690; 84484; 85025; 85610; 85730; 96360; 99284; J7120

== ENCOUNTER 2023-05-27 14:48 | Observation (INO) | payer OTHER, SELFPAY ==
--- NOTE | ~2023-05-27 | CT_ITS ---
EXAMINATION: CT abdomen pelvis wo con DATE: 05/27/2023 15:32 INDICATION: Abdominal pain TECHNIQUE: Computed tomography (CT) of the abdomen and pelvis was performed without intravenous contr ast. Automated exposure control and iterative reconstruction technique were employed. Exam dose: 511 .27 mGy-cm total exam DLP. COMPARISON: 03/23/2022 CT abdomen pelvis FINDINGS: The lung bases are clear. Normal heart size. No pericardial or pleural effusion. There is extensive edema of the abdominal and pelvic glasgow and included proximal thighs, consistent w ith anasarca. There are multiple splenic calcified granulomas. The liver, gallbladder, bile ducts, pancreas and pancreatic duct are unremarkable on this limited non contrast examination. No renal mass lesion or urinary tract calculus is evident. Mild right hydronephrosis of uncertain alley ology. There is prominent diffuse thickening of the rectal wall. There is a prominent amount of fecal materi al in the cecum, ascending colon and transverse colon. Left ostomy. Normal appendix. There is atherosclerotic calcification but no aneurysm of the abdominal aorta. No intraperitoneal or retroperitoneal or pelvic mass lesion or adenopathy or ascites is noted. There is a Izaguirre catheter and some air within the urinary bladder. There is diffuse bladder wall thic kening. There is prominent left inguinal lymphadenopathy, measuring up to 2.7 x 4.5 cm. Severe multilevel degenerative disc disease of the lumbar spine. Diffuse idiopathic skeletal hyperost osis of the thoracic spine. No suspicious osteolytic or osteoblastic lesions are noted. IMPRESSION: Anasarca Thickening of the wall of the rectum, prominent of fecal material in the colon Left ostomy Thickening of the urinary bladder wall Prominent left inguinal adenopathy Reviewed, dictated and finalized at [facility]. Reviewed, dictated and finalized at location B. S GLAZIER
--- NOTE | 2023-05-27 14:50 | ED.MALEGU ---
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 He stepped on the catheter last night and broke the end of it. He is here for a catheter replacement. Further we noticed that he had some milky white urine and we will look at that further at this time. patient also having some decreased stool in his colostomy. Some occasional abdominal pains. He has colon cancer and was supposed to be on hospice but that has not occurred at this time yet. Patient is homeless. MD Complaint: other ( Broken chronic Izaguirre catheter) Onset (ago): hour(s) (12) Duration: constant Radiation: abdomen Severity: mild Severity scale (1-10): 2 Quality: aching Relieving factors: none Exacerbating factors: none Context: indwelling catheter Associated symptoms: Reports denies other symptoms Related Data Home Medications Medication Instructions Recorded Confirmed aspirin 81 mg tablet,delayed 81 mg PO DAILY 05/27/23 05/27/23 release cholecalciferol (vitamin D3) 25 25 mcg PO BID 05/27/23 05/27/23 mcg (1,000 unit) tablet famotidine 20 mg tablet 20 mg PO BID 05/27/23 05/27/23 gabapentin 100 mg capsule 100 mg PO TID 05/27/23 05/27/23 hydroxyzine pamoate 25 mg capsule 25 mg PO TID 05/27/23 05/27/23 quetiapine 100 mg tablet 100 mg PO HS 05/27/23 05/27/23 sertraline 25 mg tablet 25 mg PO DAILY 05/27/23 05/27/23 tamsulosin 0.4 mg capsule 0.4 mg PO HS 05/27/23 05/27/23 trazodone 50 mg tablet 150 mg PO 05/27/23 05/27/23 Allergies Allergy/AdvReac Type Severity Reaction Status Date / Time Penicillins Allergy Hives Verified 03/12/23 19:56 Review of Systems Review of Systems: All systems reviewed & are unremarkable except as noted in HPI and below Constitutional: Constitutional: Reports no additional constitutional complaints Eyes: Eyes: Reports no additional eye complaints ENT: Reports system reviewed and no additional complaints, except as documented Cardiovascular: Cardiovascular: Reports no additional cardiovascular complaints Respiratory: Respiratory: Reports no additional respiratory complaints Gastrointestinal: Gastrointestinal: Reports no additional gastrointestinal complaints Genitourinary: Genitourinary: Reports no additional male genitourinary complaints Musculoskeletal: Musculoskeletal: Reports no additional musculoskeletal complaints Integumentary/Breasts: Skin/Breast: Reports system reviewed and no additional complaints, except as docu Neurologic: Reports system reviewed and no additional complaints, except as documented Psychiatric: Psychiatric: Reports no additional psychiatric complaints Endocrine: Endocrine: Reports no additional endocrine complaints Hematologic/Lymphatic: Hematologic/Lymphatic: Reports no additional hematologic/lymphatic complaints Allergic/Immunologic: Allergic/Immunologic: Reports no additional allergic/immunologic complaints PMFSH Past Medical History Medical History Chronic wound of extremity Colostomy in place Rectal cancer Rectal mass Right inguinal hernia Right-sided low back pain with sciatica Social History Social History Social History: amphetamine abuse Smoking status: Current every day smoker Substance use: never Living arrangements: with family Exam Const: General: ill appearing Nutritional Appearance: not well nourished ( Thin) Limitations: no limitations HENMT: Head: normal to inspection Ears: TM's normal bilaterally Face/Nose/Sinus: Normal external nose present Eyes: Conjunctivae: conjunctivae normal Pupils: Equal, round and reactive pupils present EOM: EOMs i
[2023-05-27 14:51] VITALS: BP 133/75; PULSE 84; RESP 18; TEMP 36.8; O2SAT 100
[2023-05-27 15:08] LABS: Basophils Absolute Auto 0.06 K/mm3 (0.00-0.10); Basophils Percent Auto 0.6 % (0.0-1.0); Eosinophils Absolute Auto 0.43 K/mm3 (0.02-0.50); Eosinophils Percent Auto 4.3 % (1.0-6.0); Hematocrit 30.1 % (40.0-54.0); Hemoglobin 9.4 g/dL (14.0-18.0); Immature Granulocyte Absolute 0.04 K/mm3 (0.00-0.00); Immature Granulocyte Percent A 0.4 % (0.0-0.0); Lymphocytes Absolute Auto 0.76 K/mm3 (1.10-4.50); Lymphocytes Percent Auto 7.6 % (18.0-42.0); Mean Corpuscular HGB Conc 31.2 g/dL (32.0-36.0); Mean Corpuscular Hemoglobin 27.4 pg (27.0-31.0); Mean Corpuscular Volume 87.8 fL (78.0-102.0); Mean Platelet Volume 8.3 fl (8.7-11.0); Monocytes Absolute Auto 0.79 K/mm3 (0.10-0.90); Monocytes Percent Auto 7.9 % (2.0-11.0); Neutrophils Absolute Auto 7.9 K/mm3 (1.7-7.2); Neutrophils Percent Auto 79.2 % (50.0-70.0); Platelet Count Result 341 K/mm3 (150-420); Red Blood Count 3.43 M/mm3 (4.70-6.10); Red Cell Distribution Width 16.1 % (11.6-14.4)
[2023-05-27 15:27] LABS: Lactic Acid Reflex 2.3 mmol/L (0.4-2.0)
[2023-05-27 15:34] LABS: Alanine Aminotransferase 11 U/L (16-63); Alkaline Phosphatase 87 U/L (46-116); Anion Gap 6 mmol/L (8-16); Aspartate Amino Transferase 12 U/L (15-37); Bilirubin,Total 0.3 mg/dL (0.00-1.00); Blood Urea Nitrogen 13 mg/dL (7-18); Calcium 9.2 mg/dL (8.5-10.1); Carbon Dioxide 29 mmol/L (21-32); Chloride 104 mmol/L (98-108); Estimated CRCL calculation 62 ml/min; Estimated Glomerular Filt Rate > 60; Glucose 136 mg/dL (70-99); Osmolality Calculated 290 mOsm/kg (285-295); Potassium 4.2 mmol/L (3.5-5.1); Sodium 139 mmol/L (136-145); Total Protein 6.5 g/dL (6.4-8.2)
[2023-05-27 16:23] LABS: Magnesium 1.9 mg/dL (1.8-2.4)
[2023-05-27 17:25] LABS: Appearance Urine Clear (Clear); Bilirubin Urine Negative (Negative); Blood Urine Trace-Intact (Negative); Color Urine Yellow (Yellow); Glucose Urine UA Negative (Negative); Ketones Urine Negative (Negative); Leukocyte Esterase Ur Negative LEU/UL (Negative); Nitrate Urine Negative (Negative); Protein Urine 1+ (Negative); Specific Grav Ur 1.025 (1.010-1.020); Urobilinogen Urine 0.2 mg/dL (0.2-1.0); pH Urine 5.5 (5.0-8.0)
[2023-05-27 17:31] LABS: Add Urine Microscopic? YES; Bacteria Urine Trace /hpf; RBC Urine 0-2 /hpf (0-2); Squamous Epithelial Cell Urine Few /hpf (Few); WBC Urine 0-3 /hpf (0-3)
[2023-05-27 18:05] LABS: Reflex Lactic Acid Yes or No Add Lactic
[2023-05-27 18:41] LABS: D Dimer 1.21 mg/L (0.19-0.50)
[2023-05-27 18:45] LABS: Lactic Acid 1.1 mmol/L (0.4-2.0)
[2023-05-27] MEDS: ENOXAPARIN 100 MG/ML SYRINGE 70 MG SUB-Q (18:58)
[2023-05-27 19:02] VITALS: BP 128/72; PULSE 80; RESP 20; O2SAT 100
[2023-05-27 19:45] VITALS: BP 148/81; PULSE 90; RESP 18; TEMP 36.6; O2SAT 99
--- NOTE | 2023-05-27 19:45 | ADMGEN ---
This patient, Collin Parra, was admitted to 2nd Floor Room 203-1. Patient/family oriented to hospital policies and general routines including ID bracelet, bed and alarms, visiting hours, pain management, procedures, bathroom and other care routines, personal items, smoking policy, room service/diet, and visiting hours. Information on how to activate the Rapid Response Team has been discussed. Patient/Family are encouraged to report perceived risks to care and to ask questions if they do not understand what they are told or what they should do.
[2023-05-27] MEDS: CIPROFLOXACIN 500 MG TAB PO (20:40)
[2023-05-27] MEDS: ACETAMINOPHEN 325 MG TABLET 650 MG PO (20:41)
[2023-05-27] MEDS: metroNIDAZOLE 500 MG/ISO 100ML 500 MG/100 ML BAG 100 MG IVPB (20:43)
[2023-05-27 21:45] VITALS: BMI 23.8
[2023-05-28] VITALS: BP 115/78; PULSE 92; RESP 18; TEMP 36.6; O2SAT 98
[2023-05-28] MEDS: metroNIDAZOLE 500 MG/ISO 100ML 500 MG/100 ML BAG 100 MG IVPB (03:17)
--- NOTE | 2023-05-28 03:23 | PC.NURSE ---
Pt is refusing to allow staff to take pictures/measurements of open area to rectal area. Pt states, I'm sleeping, can't we do it later .
[2023-05-28 04:00] VITALS: BP 142/68; PULSE 83; RESP 17; TEMP 36.1; O2SAT 98
[2023-05-28 05:17] LABS: Hematocrit 26.8 % (40.0-54.0); Hemoglobin 8.5 g/dL (14.0-18.0); Mean Corpuscular HGB Conc 31.7 g/dL (32.0-36.0); Mean Corpuscular Hemoglobin 27.8 pg (27.0-31.0); Mean Corpuscular Volume 87.6 fL (78.0-102.0); Mean Platelet Volume 8.4 fl (8.7-11.0); Platelet Count Result 274 K/mm3 (150-420); Red Blood Count 3.06 M/mm3 (4.70-6.10); Red Cell Distribution Width 16.3 % (11.6-14.4); White Blood Count 8.4 K/mm3 (4.8-10.8)
[2023-05-28 05:32] LABS: Band Neutrophils Percent 0 % (0-6); Basophils Percent Manual 0 % (0-1); Eosinophils Absolute Manual 0.84 K/mm3 (0.02-0.5); Eosinophils Percent Manual 10 % (1-6); Lymphocytes Absolute Manual 0.58 K/mm3 (1.1-4.5); Lymphocytes Percent Manual 7 % (18-44); Monocytes Absolute Manual 0.84 K/mm3 (0.1-0.90); Monocytes Percent Manual 10 % (3-9); Neutrophils Absolute Manual 6.13 K/mm3 (1.3-6.7); Neutrophils Percent Manual 73 % (46-73); Platelet Estimate Adequate (Adequate); Total Cells Counted 100
[2023-05-28 05:34] LABS: Alanine Aminotransferase 9 U/L (16-63); Albumin Level 1.8 g/dL (3.4-5.0); Alkaline Phosphatase 73 U/L (46-116); Anion Gap 8 mmol/L (8-16); Aspartate Amino Transferase < 10 U/L (15-37); Bilirubin,Total 0.4 mg/dL (0.00-1.00); Blood Urea Nitrogen 9 mg/dL (7-18); Calcium 8.8 mg/dL (8.5-10.1); Carbon Dioxide 26 mmol/L (21-32); Chloride 105 mmol/L (98-108); Estimated CRCL calculation 74 ml/min; Estimated Glomerular Filt Rate > 60; Glucose 111 mg/dL (70-99); Osmolality Calculated 287 mOsm/kg (285-295); Potassium 3.8 mmol/L (3.5-5.1); Sodium 139 mmol/L (136-145); Total Protein 6.2 g/dL (6.4-8.2)
[2023-05-28] MEDS: ENOXAPARIN 100 MG/ML SYRINGE 70 MG SUB-Q (05:36)
[2023-05-28 08:00] VITALS: BP 133/79; PULSE 88; RESP 18; TEMP 36.5; O2SAT 99
--- NOTE | 2023-05-28 08:05 | PM.IMHP ---
H&P: HPI History of Present Illness Date/Time: 05/28/23 08:05 [facility] Past Medical History Medical History Chronic wound of extremity Colostomy in place Rectal cancer Rectal mass Right inguinal hernia Right-sided low back pain with sciatica Family History Family History (Updated 05/27/23 @ 21:45 by Kimmie Vega RN) Other Unknown family medical history Social History Social History Social History: amphetamine abuse Smoking packs per day: 1 Smoking cigarettes per day: 20.0 Years smoked: 25 Smoking pack-years: 25.00 Smoking status: Heavy tobacco smoker Tobacco type: cigarettes Alcohol intake: former Substance use: former Do You Feel Safe in your Home?: Yes Lack of Transportation: No Lack of Food: Often True Current Housing: I Do Not Have Housing Concerned About Future Housing: YES Difficulty Paying Gas/Electric Bills: Decline to Answer Difficulty Paying for Meds: No Currently Unemployed: No Education: Grade School Difficulty w/ Childcare or Family Care: No Living arrangements: with family Spiritual care concerns: No Meds Home Medications and Allergies Home Medications Medication Instructions Recorded Confirmed Type aspirin 81 mg tablet,delayed 81 mg PO DAILY 05/27/23 05/27/23 History release cholecalciferol (vitamin D3) 25 25 mcg PO BID 05/27/23 05/27/23 History mcg (1,000 unit) tablet famotidine 20 mg tablet 20 mg PO BID 05/27/23 05/27/23 History gabapentin 100 mg capsule 100 mg PO TID 05/27/23 05/27/23 History hydroxyzine pamoate 25 mg capsule 25 mg PO TID 05/27/23 05/27/23 History quetiapine 100 mg tablet 100 mg PO HS 05/27/23 05/27/23 History sertraline 25 mg tablet 25 mg PO DAILY 05/27/23 05/27/23 History tamsulosin 0.4 mg capsule 0.4 mg PO HS 05/27/23 05/27/23 History trazodone 50 mg tablet 150 mg PO HS 05/27/23 05/27/23 History Allergies Allergy/AdvReac Type Severity Reaction Status Date / Time Penicillins Allergy Hives Verified 03/12/23 19:56 Vital Signs Vital Signs - 24 hr 05/27/23 14:51 05/27/23 19:02 05/27/23 19:45 Temperature 36.8 C 36.6 C Pulse Rate 84 80 90 Respiratory Rate 18 20 18 Blood Pressure 133/75 128/72 148/81 H Pulse Oximetry 100 100 99 Oxygen Delivery Room Air Room Air Room Air 05/28/23 00:00 05/28/23 04:00 Temperature 36.6 C 36.1 C L Pulse Rate 92 83 Respiratory Rate 18 17 Blood Pressure 115/78 142/68 H Pulse Oximetry 98 98 Oxygen Delivery Room Air Room Air H&P: Results Labs Labs: Short CBC 05/27/23 05/28/23 Range/Units 15:02 05:03 WBC 10.0 8.4 (4.8-10.8) K/mm3 Hgb 9.4 L 8.5 L (14.0-18.0) g/dL Hct 30.1 L 26.8 L (40.0-54.0) % Plt Count 341 274 (150-420) K/mm3 BMP 05/27/23 05/28/23 15:02 05:03 Sodium 139 139 Potassium 4.2 3.8 Chloride 104 105 Carbon Dioxide 29 26 BUN 13 9 Creatinine 1.14 0.95 Glucose 136 H 111 H Calcium 9.2 8.8 Liver Function 05/27/23 05/28/23 Range/Units 15:02 05:03 Total Bilirubin 0.3 0.4 (0.00-1.00) mg/dL AST 12 L < 10 L (15-37) U/L ALT 11 L 9 L (16-63) U/L Alkaline Phosphatase 87 73 (46-116) U/L Albumin 2.0 L 1.8 L (3.4-5.0) g/dL Urine 05/27/23 Range/Units 15:02 Urine Color Yellow (Yellow) Urine Appearance Clear (Clear) Urine pH 5.5 (5.0-8.0) Ur Specific [place] 1.025 H (1.010-1.020) Urine Protein 1+ H (Negative) Urine Glucose (UA) Negative (Negative)
[2023-05-28] MEDS: CIPROFLOXACIN 500 MG TAB PO (08:37)
[2023-05-28] MEDS: FAMOTIDINE 20 MG TABLET PO (08:38)
[2023-05-28] MEDS: hydrOXYzine pamoate 25 MG CAPSULE PO (08:38)
[2023-05-28] MEDS: GABAPENTIN 100 MG CAPSULE PO (08:38)
[2023-05-28] MEDS: SERTRALINE HCL 25 MG TABLET PO (08:38)
--- NOTE | 2023-05-28 09:26 | PM.SD2 ---
Same Day Admit/Disch: HPI History of Present Illness Chief complaint: urinary issue Narrative: Collin Parra is a 62 year old male who is homeless lives in his van arrived to our emergency department with broken Izaguirre catheter drainage bag. This was changed and UA was grossly unremarkable. She patient reports that he has a history of metastatic cancer was told previously that he had a blood clot in his right leg. He is not on any blood thinners. Patient clarifies and says that he was informed of this at [facility] in March. Patient had recently been in hospital in either [place] or [place] and they were trying to set him up with hospice care. Today patient states that he wants to start doing chemotherapy again. Patient is very terse with his answers and does not cooperate and give further information when requested. Vital signs are stable. There is no leg swelling negative Homans. Patient in no respiratory distress. Izaguirre catheter has been replaced. Imaging showed bladder inflammation and proctitis. For this patient was started on Cipro and Flagyl which we will continue with 10 day course of oral medications that are printed for him to take to any pharmacy for fill. Patient does not appear to have any acute emergency at this time requiring continued hospitalization. Discharge with instructions to follow-up with primary care provider. Prior facilities have attempted to place patient in a senior living but he is not capable of such due to prior history of felonies. [facility] Past Medical History Medical History Chronic wound of extremity Colostomy in place Rectal cancer Rectal mass Right inguinal hernia Right-sided low back pain with sciatica Family History Family History Other Unknown family medical history Social History Social History Social History: amphetamine abuse Smoking packs per day: 1 Smoking cigarettes per day: 20.0 Years smoked: 25 Smoking pack-years: 25.00 Smoking status: Heavy tobacco smoker Tobacco type: cigarettes Alcohol intake: former Substance use: former Do You Feel Safe in your Home?: Yes Lack of Transportation: No Lack of Food: Often True Current Housing: I Do Not Have Housing Concerned About Future Housing: YES Difficulty Paying Gas/Electric Bills: Decline to Answer Difficulty Paying for Meds: No Currently Unemployed: No Education: Grade School Difficulty w/ Childcare or Family Care: No Living arrangements: with family Spiritual care concerns: No Same Day Admit/Disch: Med Pre-admit Medications Home Medications Medication Instructions Recorded Confirmed Type aspirin 81 mg tablet,delayed 81 mg PO DAILY 05/27/23 05/27/23 History release cholecalciferol (vitamin D3) 25 25 mcg PO BID 05/27/23 05/27/23 History mcg (1,000 unit) tablet famotidine 20 mg tablet 20 mg PO BID 05/27/23 05/27/23 History gabapentin 100 mg capsule 100 mg PO TID 05/27/23 05/27/23 History hydroxyzine pamoate 25 mg capsule 25 mg PO TID 05/27/23 05/27/23 History quetiapine 100 mg tablet 100 mg PO HS 05/27/23 05/27/23 History sertraline 25 mg tablet 25 mg PO DAILY 05/27/23 05/27/23 History tamsulosin 0.4 mg capsule 0.4 mg PO HS 05/27/23 05/27/23 History trazodone 50 mg tablet 150 mg PO HS 05/27/23 05/27/23 History ciprofloxacin HCl 500 mg tablet 500 mg PO Q12H #20 tabs 05/28/23 Rx (Cipro) metronidazole 500 mg tablet 500 mg PO Q8H 10 days #30 tabs 05/28/23 Rx Review of Systems Review of Systems ROS unobtainable: Yes other ( Patient uncooperative with questioning) Exam Narrative: GENERAL: stable appearing in no acute distress. HEAD: Normocephalic, atraumatic. ENT:? Mucous membranes moist. CHEST: Clear to auscultation.? No respiratory distress. right upper chest infusion por
--- NOTE | 2023-05-30 12:02 | PC.NURSE ---
Discharge call back attempted, no answer
--- NOTE | 2023-05-31 09:10 | PC.NURSE ---
discharge call back attempted, no answer
--- NOTE | 2023-06-01 09:09 | PC.NURSE ---
Unable to contact for discharge follow up
== END 2023-05-28 10:20 | disposition home or self-care (01) ==
LOC: CHSED 15:43 → CHS2ND 18:07
PROVIDERS: Admitting Provider Internal Medicine; Emergency Provider Emergency Medicine; PCP Family Medicine; Visit Provider Internal Medicine
DX: T83.011A Breakdown (mechanical) of indwelling urethral catheter, initial encounter (principal); Y84.6 Urinary catheterization as the cause of abnormal reaction of the patient, or of later complication, without mention of misadventure at the time of the procedure; K62.89 Other specified diseases of anus and rectum; N30.90 Cystitis, unspecified without hematuria; C18.9 Malignant neoplasm of colon, unspecified; I82.491 Acute embolism and thrombosis of other specified deep vein of right lower extremity; R60.1 Generalized edema; R33.9 Retention of urine, unspecified; Z59.02 Unsheltered homelessness; Z93.3 Colostomy status; F17.210 Nicotine dependence, cigarettes, uncomplicated; Z79.82 Long term (current) use of aspirin; Z79.899 Other long term (current) drug therapy
CPT/HCPCS: 36415; 74176; 80053; 81001; 83605; 83735; 85025; 85380; 96365; 96372; 99285; A9270; G0378; G0379; J1650; J1836